=== PATIENT | male | born 1945 | race Caucasian/White ===

== ENCOUNTER 2018-07-12 10:04 | Emergency (ER) | payer OTHER ==
--- NOTE | 2018-07-12 10:21 | EDPHY ---
H & P Stated Complaint: slipped on ice--R wrist injury +deformity Time Seen by Provider: 07/12/18 10:17 HPI/ROS: HPI: This is a 72-year-old male who presents with Chief Complaint: Right wrist injury, deformity Location: Right wrist Quality: Injury Duration: Prior to arrival Signs and Symptoms: No bleeding, no radiation, no numbness, no weakness, no tingling, no incontinence, + decreased range of motion, no swelling, + pain, no fever Timing: Acute Severity: 12/13 Context: Patient is right-hand dominant, presents accompanied by his , with complaints of accidentally slipping on the ice this morning and using his right outstretched hand to stop his fall. Patient is adamant that he did not hit his head and has no other injuries except his right wrist. Patient walked back to the house and told his of his injury. Patient noted deformity to right wrist. Denies LOC/head injury/neck pain/dizziness/nausea/ vomiting/amnesia. Patient reports pain 12/13 that is worsened with flexion and extension. Does not take any blood thinners. Denies paresthesias, weakness, radiation. History of left wrist fracture last May. Modifying Factors: None Comment: ROS: A comprehensive 10 system review of systems is otherwise negative aside from elements mentioned in the history of present illness. MEDICAL/SURGICAL/SOCIAL HISTORY: Medical history: Hypothyroidism, left wrist fracture. Surgical history: Denies Social history: Retired, . CONSTITUTIONAL: Elderly extremely polite and talkative white male, at bedside, awake and alert, no obvious distress HEENT: Atraumatic and normocephalic. NECK: supple, no midline tenderness, flexion 45 degrees, extension 45 degrees, right and left lateral flexion 45 degrees. No meningismus. Cardiovascular: Normal S1/S2, regular rate, regular rhythm, without murmur rub or gallop. PULMONARY/CHEST: Symmetrical and nontender. no crepitus. Clear to auscultation bilaterally. Good air movement. No accessory muscle usage. ABDOMEN: Soft, nondistended, nontender, no ecchymosis. PELVIC: no pain with rocking; bilateral hips flexion 125 degrees, extension 30 degrees, with no pain internal rotation and no pain external rotation. BACK: No midline tenderness, no paraspinous spasm, deep tendon reflexes 2/2, no pain with straight leg raise, No foot drop. Achilles reflexes are equal bilaterally. EXTREMITIES: 2/2 pulses, strength 5/5, right WRIST: Obvious deformity noted over radius and ulna. Decreased extension, flexion and radial/ulnar deviation no scaphoid tenderness, moderate tenderness over ulnar styloid, moderate tenderness over radial styloid, able to wiggle all 5 fingers, DIP/PIP/MCP flexion/extension intact with good light touch sensation. no deformities, no clubbing, no cyanosis or edema. NEUROLOGICAL: no focal neuro deficits. GCS 15. Light touch sensation intact. SKIN: Warm and dry, 2 in laceration noted over the ulna styloid-no active bleeding. no erythema. no rash. Good capillary refill. Source: Patient, Family () Exam Limitations: No limitations - Medical/Surgical History Hx Asthma: No Hx Chronic Respiratory Disease: No Hx Diabetes: No Hx Cardiac Disease: No Hx Renal Disease: No Hx Cirrhosis: No Hx Alcoholism: No Hx HIV/AIDS: No Hx Splenectomy or Spleen Trauma: No Other PMH: hypothyroid - Social History Smoking Status: Never smoked Constitutional: Initial Vital Signs Temperature (C) 36.5 C 07/12/18 10:10 Heart Rate 75 07/12/18 10:10 Respiratory Rate 16 07/12/18 10:10 Blood Pressure 128/81 H 07/12/18 10:10 O2 Sat (%) 92 07/12/18 10:10 O2 Delivery Mode Room Air Allergies/Adverse Reactions: No Known Allergies Allergy (Unverified 07/12/18 10:09) Home Medications: Medication Instructions Recorded Cephalexin [Keflex (*)] 500 mg PO TID #21 cap 07/12/18 Levothyroxine 07/12/18 Venlafaxine 25MG (*) 07/12/18 oxyCODONE/APAP 5/325 [Percocet 1 - 2 tab PO Q4H PRN #10 tab 07/12/18 5/325 (*)] Medical Decision Making - Diagnostics Imaging Results: Imaging Impressions Wrist X-Ray 07/12/18 10:12 Impression: Distal radial and ulnar comminuted fractures. Cannot exclude an open fracture of the ulna. Procedures: Procedure: Laceration repair. Verbal consent was obtained from the patient. The 1/2 inch vertical incision over ulnar styloid right side laceration was anesthetized in the usual fashion using 6 mL 1% lidocaine with epinephrine. The wound was irrigated, draped and explored to its base with a gloved finger. There were no deep structures involved. No tendon injury was identified. The wound was repaired with #2, 4 0 Prolene in simple interrupted pattern. Bacitracin, Adaptic, clean sterile dressing applied. The procedure was performed by myself. Procedure: Dislocation reduction. The dislocation of the [ ] was reduced using [ ] technique without complications. Post reduction the patient's neurovascular exam is normal. Post reduction x-ray demonstrates reduction of the joint to the anatomic position. The procedure was performed by myself. Procedure: Splint placement. A right sugar-tong Ortho Glass splint and sling were applied. After application of the splint I returned and re-examined the patient. The splint was adequately immobilizing the joint and distal to the splint the patient's circulation and sensation was intact. ED Course/Re-evaluation: Vital signs reviewed and stable upon arrival. Mechanical fall in nature. No signs of syncope, ACS, sepsis. Patient did not hit head, no loss of consciousness, no neurological deficits to warrant head CT imaging. Bedside imaging right wrist x-ray shows displaced radial and ulna fracture. 50 mcg of fentanyl nasal given Patient has a small laceration 2 in in size over the ulnar aspect; making this an open fracture IV placed and given 2 g IV Ancef Laceration closed. Reduced at bedside, placed in sugar-tong splint, sling, orthopedic follow-up in the next 2-3 days Patient understands that he will likely require surgery. Given a prescription for Percocet and Keflex X-rays provided to patient on disc. Written and verbal wound care instructions provided No signs of neurovascular compromise/tenting of skin/compartment syndrome/ extremities and joints examined above and below area of concern and are neurovascularly intact. This patient was seen under the supervision of my secondary supervising physician. I evaluated care for this patient independently. Differential Diagnosis: Wrist injury differential includes but is not limited to radial fracture, ulnar fracture, scaphoid fracture, ligamentous injury, nerve injury. - Data Points Medications Given: Discontinued Medications Fentanyl (Sublimaze) 50 mcg NASAL EDNOW ONE Stop: 07/12/18 10:23 Last Admin: 07/12/18 10:25 Dose: 50 mcg Hydromorphone HCl (Dilaudid) 1 mg IVP EDNOW ONE Stop: 07/12/18 10:52 Last Admin: 07/12/18 10:52 Dose: 1 mg Cefazolin Sodium/Dextrose (Ancef 1 Gm (Premix)) 50 mls @ 200 mls/hr IV EDNOW ONE PRN Reason: Protocol Stop: 07/12/18 10:48 Last Admin: 07/12/18 10:47 Dose: Not Given Cefazolin Sodium/Dextrose (Ancef) 100 mls @ 200 mls/hr IV EDNOW ONE PRN Reason: Protocol Stop: 07/12/18 11:11 Last Admin: 07/12/18 10:46 Dose: 100 mls Departure - Departure Disposition: Home, Routine, Self-Care Clinical Impression: Open fracture of radius with ulna Qualifiers: Encounter type: initial encounter Open fracture type: open type I or II Laterality: right Qualified Code(s): S52.91XB - Unspecified fracture of right forearm, initial encounter for open fracture type I or II Laceration of right wrist without complication Qualifiers: Encounter type: initial encounter Qualified Code(s): S61.511A - Laceration without foreign body of right wrist, initial encounter Condition: Good Instructions: Care For Your Stitches (ED), Wrist Fracture in Adults (ED), Splint Care (ED), ORIF of a Wrist Fracture (DC) Additional Instructions: Keep the splint dry and in place until seen by Orthopedics. Wear the sling as needed for comfort. Take Tylenol 650 mg every 4 hours and/or Ibuprofen 600 mg every 8 hours with food as needed for pain. Use Percocet every 6 hours as needed for severe/break through pain. Do not use Tylenol and Percocet concomitantly. Apply ice for 30 minutes at a time; 2-3 times per day for the next 1-2 days. Take antibiotic as directed. Do not skip a dose. Follow up with Orthopedics in 2-3 days at which time they will evaluate and likely recommend surgery. Return to the ER immediately if you experience new or worsening pain, discoloration, numbness, tingling, or any other symptoms that concern you.\ Wound Care Follow-Up: Removal of sutures in [ 10-14 ] days. Suture removal is complimentary in uncomplicated cases. Infection or abnormal findings would require reevaluation by the MD. In that case, you may be billed. Follow-Up: Please follow-up as noted above. Follow-up sooner if your condition worsens or if you develop any new problems. Call as soon as possible for an appointment. Be clear when you call for an appointment that this is an Emergency Department follow-up. Contact the Emergency Department if you have trouble arranging follow-up care. Our referrals are not based on your insurance network. When time allows, contact your insurance carrier to verify the referral physician is in your plan. If not, get a referral for an in-network systems analyst. Referrals: CHRISTOPHER MORALES [Primary Care Provider] - As per Instructions Tavares Meyers MD [Medical Doctor] - As per Instructions Prescriptions: Cephalexin [Keflex (*)] 500 mg PO TID #21 cap oxyCODONE/APAP 5/325 [Percocet 5/325 (*)] 1 - 2 tab PO Q4H PRN #10 tab PRN Reason: Pain, Severe
[2018-07-12] MEDS ORDERED: fentaNYL 100 MCG/2 ML INJ NASAL ONE (10:22)
[2018-07-12] MEDS ORDERED: fentaNYL 100 MCG/2 ML INJ ONE (10:23)
[2018-07-12] MEDS ORDERED: ceFAZolin 2 GM/DEXTROSE 100 ML IV ONE (10:42)
[2018-07-12] MEDS ORDERED: CEFAZOLIN 2 GM/DEXTROSE/100 ML BAG IV ONE (10:42)
[2018-07-12] MEDS ORDERED: HYDROmorphONE/DILAUDID 1 MG/ML INJ ONE (10:50)
[2018-07-12] MEDS ORDERED: HYDROmorphONE/DILAUDID 2 MG/ML INJ IVP ONE (10:51)
[2018-07-12 12:00] VITALS: BP 126/70
== END 2018-07-12 12:00 | disposition home or self-care (01) ==
DX: S59.291A Other physeal fracture of lower end of radius, right arm, initial encounter for closed fracture (principal); S59.091A Other physeal fracture of lower end of ulna, right arm, initial encounter for closed fracture; S61.511A Laceration without foreign body of right wrist, initial encounter; E03.9 Hypothyroidism, unspecified; W00.0XXA Fall on same level due to ice and snow, initial encounter; Y92.9 Unspecified place or not applicable; Y99.9 Unspecified external cause status; Y93.9 Activity, unspecified
CPT/HCPCS: 12001; 25675; 73110; 96365; 96375; 99284; A4565; J0690; J1170; J3010

== ENCOUNTER 2018-10-19 07:21 | Inpatient (IN) | payer OTHER ==
[2018-10-19] MEDS ORDERED: ONDANSETRON 4 MG/2 ML VIAL IVP ONE (07:32)
[2018-10-19] MEDS ORDERED: LORazepam 2 MG/ML INJ IVP ONE (07:32)
[2018-10-19] MEDS ORDERED: NS 1,000 ML IV ONE (07:32)
[2018-10-19 07:42] LABS: PLATELET COUNT 233 10^3/uL (150-400)
--- NOTE | 2018-10-19 07:45 | EDPHY ---
H & P Time Seen by Provider: 10/19/18 07:32 HPI/ROS: HPI Syncope, fall, left hip pain. 73-year-old male by ambulance from home. This patient woke up at approximately 6:00 a.m. With what he describes as nausea and an urge to defecate. According to his as he was getting out of bed, he stumbled and fell. The patient reports that he was lightheaded. He landed awkwardly on his left hip. His then helped him to the bathroom and got him on the toilet. He had diarrhea. No vomiting. She called EMS. On EMS arrival he was on the toilet. His complaint was of left hip pain. He complains of no associated palpitations , chest pain, shortness of breath, loss of sensation or weakness in his extremities, sudden-onset headache. He states he feels mildly nauseous. Last meal was last night at 8:00 p.m. ROS: Constitutional: No fever, no chills. As above. Eyes: No discharge. No changes in vision. ENT: No sore throat. No nasal congestion or rhinorrhea. Respiratory: No cough. No shortness of breath. Cardiac: No chest pain, no palpitations. Gastrointestinal: No abdominal pain, no vomiting, no diarrhea. Genitourinary: No hematuria. No dysuria or increased frequency with urination. Musculoskeletal: No back pain. No neck pain. As above. Denies other extremity pain. Skin: No rashes. Neurological: No headache. No focal weakness or altered sensation. Past medical history: Hypothyroid, anorexia, anxiety. Social history: Nonsmoker. Social alcohol. He is and lives with his . His is here at the bedside. Physical Exam: General Appearance: Alert, mildly anxious but not in distress. Very thin, borderline cachectic. This patient is responding to questions appropriately and in full sentences. This patient appears well-hydrated and well-nourished. Head: Normocephalic atraumatic. Face: Facial bones are stable on palpation. Eyes: Pupils equal and round and reactive to light, no pallor or injection. No lid erythema or edema. ENT, Mouth: Mucous membranes moist. Dentition is intact. No malocclusion of the jaw. No tongue lacerations or abrasions. Pharynx is clear. The bilateral nasal canals are clear. No septal hematoma. Respiratory: There are no retractions, lungs are clear to auscultation with good air movement bilaterally. Chest wall is stable to AP and lateral palpation. Cardiovascular: Regular rate and rhythm. No murmur. Gastrointestinal: Abdomen is soft and nontender, no masses, bowel sounds normal. Neurological: Motor sensory function is intact. Cranial nerves are normal. Cerebellar function intact. Skin: Warm and dry, no rashes. No lacerations, abrasions or contusions. Musculoskeletal: Neck is supple and nontender. The trachea is midline. No midline cervical, thoracic, lumbar or sacral tenderness on palpation. No flank tenderness on palpation. Left lower extremity in hip exam: Significant for tenderness on palpation of the proximal anterior lateral aspect of the thigh. There is shortening of the left lower extremity relative to the right lower extremity. The left lower extremity is neurovascularly intact. All joints in the left lower extremity except the left hip range without significant pain or impingement. Extremities are symmetrical, full range of motion except noted. All joints in the bilateral upper and bilateral lower extremities range without pain or impingement except noted. No tenderness on palpation of the long bones in the bilateral upper and bilateral lower extremities except noted. Psychiatric: No agitation. No depression. Database: EKG: EKG time is 7:29 a.m.; EKG shows a narrow complex normal sinus rhythm with a ventricular rate of 59. QS waves noted in the anterior septal leads V1 and V2. The OR, QRS, QT intervals are within normal limits. Nonspecific T-wave abnormalities in the lateral leads. There are no ST-T wave changes indicative of ischemic or injury pattern. No evidence of right heart strain. No evidence of WPW, Brugada syndrome, hypertrophic cardiomyopathy. Interpreted by me. Imaging: Left femur and hip x-ray series: Significant for a comminuted displaced subtrochanteric femur fracture. Interpreted by me. Procedures: Emergency department course: Triage vital signs reviewed and are normal. IV was placed per EMS. The patient had been started on IV normal saline by EMS. He will receive 1 L over the next hour. The patient will be given 0.5 mg of IV hydromorphone for pain and 4 mg of IV Zofran for nausea. EKG and left hip x-ray obtained. 8:00 a.m., the patient was re-evaluated, he appears to be resting comfortably at this time. I discussed results of his x-ray and diagnosis of left hip fracture with him and his . I discussed need for operative management and admission. All of their questions were answered. Orthopedics paged. 8:05 a.m., spoke with on-call hospitalist. Case discussed in detail. Patient accepted for admission to the hospitalist service under Dr. Daniel Rod. 8:15 a.m., spoke with on-call orthopedic surgeon Dr. Huseyin Meyers. Case discussed with him in detail. He plans on taking this patient to the OR this morning for repair of his left femur fracture. The patient's remaining emergency department course under my care has been uneventful. He was given additional IV hydromorphone for pain control. On re-evaluation his left lower extremity is neurovascularly intact. His pain is currently well controlled. He was admitted to the hospitalist service/preop in stable condition. Differential Diagnosis: The differential diagnosis on this patient includes but is not limited to left hip fracture, left proximal femur fracture, dehydration, vasovagal syncope. Arrhythmia, acute coronary syndrome, CVA unlikely. This represents a partial list of diagnoses considered. These considerations are based on history, physical exam, past history, reassessment and diagnostic testing. Smoking Status: Former smoker Constitutional: Initial Vital Signs Temperature (C) 36.4 C 10/19/18 07:25 Heart Rate 63 10/19/18 07:25 Respiratory Rate 16 10/19/18 07:25 Blood Pressure 105/67 10/19/18 07:25 O2 Sat (%) 97 10/19/18 07:25 O2 Delivery Mode Room Air Allergies/Adverse Reactions: morphine Allergy (Mild, Unverified 10/19/18 08:31) Other-Enter Comments Home Medications: Medication Instructions Recorded Levothyroxine [Synthroid 75 mcg 75 mcg PO DAILY06 07/12/18 (*)] Acetaminophen [Tylenol ES 500 mg 500 mg PO Q6H PRN 10/19/18 (*)] Herbals/Supplements -Info Only 1 ea PO DAILY 10/19/18 Tamsulosin HCl [Flomax 0.4 MG (*)] 0.4 mg PO DAILY 10/19/18 Venlafaxine HCl [Venlafaxine HCl 150 mg PO DAILY 10/19/18 ER] Medical Decision Making - Diagnostics Imaging Results: Imaging Impressions Femur X-Ray 10/19/18 07:33 Impression: 1. Intact shaft distal femur. 2. Angulated and comminuted intertrochanteric fracture. - Data Points Laboratory Results: Laboratory Results 10/19/18 07:25 10/19/18 07:25 10/19/18 10/19/18 10/19/18 07:25 07:25 07:25 WBC 5.11 10^3/uL 10^3/uL (3.80-9.50) RBC 3.24 10^6/uL L 10^6/uL (4.40-6.38) Hgb 10.7 g/dL L g/dL (13.7-17.5) Hct 33.1 % L % (40.0-51.0) MCV 102.2 fL H fL (81.5-99.8) MCH 33.0 pg pg (27.9-34.1) MCHC 32.3 g/dL L g/dL (32.4-36.7) RDW 13.3 % % (11.5-15.2) Plt Count 233 10^3/uL 10^3/uL (150-400) MPV 10.3 fL fL (8.7-11.7) Neut % (Auto) 57.3 % % (39.3-74.2) Lymph % (Auto) 31.1 % % (15.0-45.0) [place] % (Auto) 9.2 % % (4.5-13.0) Eos % (Auto) 1.2 % % (0.6-7.6) Baso % (Auto) 0.8 % % (0.3-1.7) Nucleat RBC Rel Count 0.0 % % (0.0-0.2) Absolute Neuts (auto) 2.93 10^3/uL 10^3/uL (1.70-6.50) Absolute Lymphs (auto) 1.59 10^3/uL 10^3/uL (1.00-3.00) Absolute Monos (auto) 0.47 10^3/uL 10^3/uL (0.30-0.80) Absolute Eos (auto) 0.06 10^3/uL 10^3/uL (0.03-0.40) Absolute Basos (auto) 0.04 10^3/uL 10^3/uL (0.02-0.10) Absolute Nucleated RBC 0.00 10^3/uL 10^3/uL (0-0.01) Immature Gran % 0.4 % % (0.0-1.1) Immature Gran # 0.02 10^3/uL 10^3/uL (0.00-0.10) PT 13.2 SEC SEC (12.0-15.0) INR 1.04 (0.83-1.16) APTT Pending Sodium 133 mEq/L L mEq/L (135-145) Potassium 4.2 mEq/L mEq/L (3.5-5.2) Chloride 94 mEq/L L mEq/L (97-110) Carbon Dioxide 29 mEq/l mEq/l (22-31) Anion Gap 10 mEq/L mEq/L (6-14) BUN 18 mg/dL mg/dL (7-23) Creatinine 0.9 mg/dL mg/dL (0.7-1.3) Estimated GFR > 60 Glucose 120 mg/dL H mg/dL (70-100) Calcium 8.7 mg/dL mg/dL (8.5-10.4) Medications Given: Discontinued Medications Sodium Chloride (Ns) 1,000 mls @ 0 mls/hr IV EDNOW ONE; Wide Open PRN Reason: Protocol Stop: 10/19/18 07:33 Last Admin: 10/19/18 07:46 Dose: 1,000 mls Lorazepam (Ativan Injection) 0.5 mg IVP EDNOW ONE Stop: 10/19/18 07:33 Last Admin: 10/19/18 07:46 Dose: 0.5 mg Ondansetron HCl (Zofran) 4 mg IVP EDNOW ONE Stop: 10/19/18 07:33 Last Admin: 10/19/18 07:46 Dose: 4 mg Departure - Departure Disposition: [facility] Acute Clinical Impression: Syncope, Injury of left hip
[2018-10-19] MEDS ORDERED: ONDANSETRON 4 MG/2 ML VIAL IVP PRN ×2 (08:17→10:06)
[2018-10-19] MEDS ORDERED: ONDANSETRON DISINTEGRATING 4 MG TAB PO PRN (08:17)
[2018-10-19] MEDS ORDERED: HYDROmorphONE/DILAUDID 1 MG/ML INJ IVP PRN (08:17)
[2018-10-19] MEDS ORDERED: HYDROmorphONE/DILAUDID 2 MG/ML INJ IVP ONE (08:32)
[2018-10-19] MEDS ORDERED: HYDROmorphONE/DILAUDID 2 MG/ML INJ ONE (08:34)
[2018-10-19] MEDS ORDERED: BUPIVACAINE/EPI 0.5% 30 ML SDV ONE (09:23)
[2018-10-19] MEDS ORDERED: CEFAZOLIN 2 GM/DEXTROSE/100 ML BAG IV ONE (09:57)
[2018-10-19] MEDS ORDERED: PROPOFOL 200 MG/20 ML VIAL ONE (10:01)
[2018-10-19] MEDS ORDERED: fentaNYL 100 MCG/2 ML INJ ONE ×3 (10:01→13:35)
[2018-10-19] MEDS ORDERED: ROCURONIUM 50 MG/5 ML VIAL ONE ×2 (10:03→11:38)
[2018-10-19] MEDS ORDERED: NALOXONE HCL 0.4 MG/ML INJ IVP PRN (10:06)
[2018-10-19] MEDS ORDERED: oxyCODONE IR 5 MG TAB PO PRN (10:06)
--- NOTE | 2018-10-19 10:06 | PDANEPAE ---
ANE History of Present Illness Hip Fx ORIF ANE Past Medical History - Cardiovascular History Hx Hypertension: No Hx Arrhythmias: No - Pulmonary History Hx Oxygen in Use at Home: No Hx Sleep Apnea: No - Endocrine History Hx Diabetes: No ANE Review of Systems Review of Systems: ANE Patient History - Allergies Allergies/Adverse Reactions: morphine Allergy (Mild, Unverified 10/19/18 08:31) Other-Enter Comments - Home Medications Home Medications: Levothyroxine [Synthroid 75 mcg (*)] 75 mcg PO DAILY06 07/12/18 [Last Taken ] Acetaminophen [Tylenol ES 500 mg (*)] 500 mg PO Q6H PRN 10/19/18 [Last Taken 05:00] Herbals/Supplements -Info Only 1 ea PO DAILY 10/19/18 [Last Taken 10/18/18] Tamsulosin HCl [Flomax 0.4 MG (*)] 0.4 mg PO DAILY 10/19/18 [Last Taken 10/18/18 ] Venlafaxine HCl [Venlafaxine HCl ER] 150 mg PO DAILY 10/19/18 [Last Taken ] - NPO status NPO Since - Liquids (Date): 10/18/18 NPO Since - Liquids (Time): 20:00 NPO Since - Solids (Date): 10/18/18 NPO Since - Solids (Time): 20:00 - Smoking Hx Smoking Status: Former smoker ANE Labs/Vital Signs - Labs Result Diagrams: 10/19/18 07:25 10/19/18 07:25 - Vital Signs Blood Pressure: 119/82 Heart Rate: 66 Respiratory Rate: 16 O2 Sat (%): 100 Height: 175.26 cm Weight: 54.431 kg ANE Physical Exam - Airway Neck exam: FROM Mallampati Score: Class 2 Mouth exam: normal dental/mouth exam - Pulmonary Pulmonary: clear to auscultation - Cardiovascular Cardiovascular: regular rate and rhythym - ASA Status ASA Status: II ANE Anesthesia Plan Anesthesia Plan: GA w LMA
[2018-10-19] MEDS ORDERED: ceFAZolin 2 GM/DEXTROSE 100 ML IV ONE (10:08)
--- NOTE | 2018-10-19 10:08 | PDGENHP ---
History and Physical History and Physical: CC: L hip injury HPI: Slipped getting out of bed today. Fell on L hip. Immediate pain and inability to WB. Seen in ED. Admitted to hospitalist service. PSH: bl wrist orif Exam: Gen - no distress, a&ox3 LLE -shortened, ER -intact EHL/FHL -1+ distal AT pulse -SILT Imaging: L hip IT fx A/P: L hip IT fx -plan OR
--- NOTE | 2018-10-19 10:08 | PDHPUP ---
History & Physical Update H&P update statement: This history and physical update is based on an assessment of the patient which was completed after admission or registration (within 24 hours), but prior to the surgery/procedure. H&P update: H&P reviewed & patient examined, no change in patient's condition since H&P completed
[2018-10-19] MEDS ORDERED: ONDANSETRON 4 MG/2 ML VIAL ONE (12:43)
[2018-10-19] MEDS ORDERED: RANITIDINE 50 MG/2 ML VIAL ONE (12:43)
--- NOTE | 2018-10-19 13:16 | PDMN ---
Medical Necessity Medical necessity: Pt meets IP criteria as of 10/21/2018 per MD and YUDI SALAS ( Musculoskeletal Disease [facility]); est los > 2 mn for ongoing tx and management of comminuted displaced subtrochanteric femur fracture s/p syncope with a fall; requiring surgical intervention, pain control, and PT/OT.
--- NOTE | 2018-10-19 13:26 | POSTANESTH ---
Post Anesthetic Evaluation Cardiovascular Status: Normal, Stable Respiratory Status: Normal, Stable Level of Consciousness/Mental Status: Can Participate in Eval, Mildly Sleepy, Arousable Pain Control: Adequate, Prn Tx Ordered Nausea/Vomiting Control: Adequate, Prn Tx Ordered Complications Possibly Related to Anesthesia: None Noted
[2018-10-19] MEDS: fentaNYL 100 MCG/2 ML INJ IVP PRN ×2 (13:36→13:45)
[2018-10-19] MEDS ORDERED: HYDROmorphONE/DILAUDID 1 MG/ML INJ ONE (14:01)
[2018-10-19] MEDS: HYDROmorphONE/DILAUDID 1 MG/ML INJ IVP PRN ×2 (14:04→14:15)
--- NOTE | 2018-10-19 14:35 | PDGENHP ---
History and Physical - Chief Complaint L Hip pain - History of Present Illness Jean-Claude Jiménez is a 73 yo M with a PMHx of Hypothyroidism, Anorexia who presents to [facility] for L hip pain after fall. His is at bedside who has helped with hx taking. They report that patient woke up around 6 AM this morning with the urge to defecate. As we was going to bathroom, he tripped and fell on his L side with acute onset of severe sharp pain in his L hip. He was unable to bear weight on his L side without significant pain. He denies any lightheadedness, dizziness, LOC, chest pain, SOB. His got him to the toilet afterwards and he had an episode of loose stools. He denies any hematochezia, melena, hemoptysis, hematuria. History Information - Allergies/Home Medication List Allergies/Adverse Reactions: morphine Allergy (Mild, Verified 10/19/18 13:43) Other-Enter Comments Home Medications: Levothyroxine [Synthroid 75 mcg (*)] 75 mcg PO DAILY06 07/12/18 [Last Taken ] Acetaminophen [Tylenol ES 500 mg (*)] 500 mg PO Q6H PRN 10/19/18 [Last Taken 05:00] Herbals/Supplements -Info Only 1 ea PO DAILY 10/19/18 [Last Taken 10/18/18] Tamsulosin HCl [Flomax 0.4 MG (*)] 0.4 mg PO DAILY 10/19/18 [Last Taken 10/18/18 ] Venlafaxine HCl [Venlafaxine HCl ER] 150 mg PO DAILY 10/19/18 [Last Taken ] I have personally reviewed and updated: family history, medical history, social history, surgical history - Past Medical History Additional medical history: Hypothyroidism, Idiopathic neuropathy, Anorexia - Surgical History Additional surgical history: recent wrist fracture repair - Family History Positive for: non-pertinent - Social History Smoking Status: Former smoker Review of Systems Review of Systems: ROS: 10pt was reviewed & negative except for what was stated in HPI & below Physical Exam Physical Exam: Temp Pulse Resp BP Pulse Ox 36.4 C 66 14 129/85 H 100 10/19/18 13:57 10/19/18 10:05 10/19/18 14:15 10/19/18 14:15 10/19/18 14:15 O2 (L/minute) 1 Constitutional: no apparent distress, cachectic Eyes: PERRL Ears, Nose, Mouth, Throat: moist mucous membranes Cardiovascular: regular rate and rhythym Respiratory: no respiratory distress, no rales or rhonchi Gastrointestinal: soft, non-tender abdomen Genitourinary: no bladder fullness Skin: warm Musculoskeletal: pain with ROM Neurologic: AAOx3 Psychiatric: interacting appropriately Lab Data & Imaging Review 10/19/18 07:25 10/19/18 07:25 WBC 5.11 10^3/uL (3.80-9.50) 10/19/18 07:25 RBC 3.24 10^6/uL (4.40-6.38) L 10/19/18 07:25 Hgb 10.7 g/dL (13.7-17.5) L 10/19/18 07:25 Hct 33.1 % (40.0-51.0) L 10/19/18 07:25 MCV 102.2 fL (81.5-99.8) H 10/19/18 07:25 MCH 33.0 pg (27.9-34.1) 10/19/18 07:25 MCHC 32.3 g/dL (32.4-36.7) L 10/19/18 07:25 RDW 13.3 % (11.5-15.2) 10/19/18 07:25 Plt Count 233 10^3/uL (150-400) 10/19/18 07:25 MPV 10.3 fL (8.7-11.7) 10/19/18 07:25 Neut % (Auto) 57.3 % (39.3-74.2) 10/19/18 07:25 Lymph % (Auto) 31.1 % (15.0-45.0) 10/19/18 07:25 Carroll % (Auto) 9.2 % (4.5-13.0) 10/19/18 07:25 Eos % (Auto) 1.2 % (0.6-7.6) 10/19/18 07:25 Baso % (Auto) 0.8 % (0.3-1.7) 10/19/18 07:25 Nucleat RBC Rel Count 0.0 % (0.0-0.2) 10/19/18 07:25 Absolute Neuts (auto) 2.93 10^3/uL (1.70-6.50) 10/19/18 07:25 Absolute Lymphs (auto) 1.59 10^3/uL (1.00-3.00) 10/19/18 07:25 Absolute Monos (auto) 0.47 10^3/uL (0.30-0.80) 10/19/18 07:25 Absolute Eos (auto) 0.06 10^3/uL (0.03-0.40) 10/19/18 07:25 Absolute Basos (auto) 0.04 10^3/uL (0.02-0.10) 10/19/18 07:25 Absolute Nucleated RBC 0.00 10^3/uL (0-0.01) 10/19/18 07:25 Immature Gran % 0.4 % (0.0-1.1) 10/19/18 07:25 Immature Gran # 0.02 10^3/uL (0.00-0.10) 10/19/18 07:25 PT REJ 10/19/18 07:25 INR TNP 10/19/18 07:25 APTT TNP 10/19/18 07:25 Sodium 133 mEq/L (135-145) L 10/19/18 07:25 Potassium 4.2 mEq/L (3.5-5.2) 10/19/18 07:25 Chloride 94 mEq/L (97-110) L 10/19/18 07:25 Carbon Dioxide 29 mEq/l (22-31) 10/19/18 07:25 Anion Gap 10 mEq/L (6-14) 10/19/18 07:25 BUN 18 mg/dL (7-23) 10/19/18 07:25 Creatinine 0.9 mg/dL (0.7-1.3) 10/19/18 07:25 Estimated GFR > 60 10/19/18 07:25 Glucose 120 mg/dL (70-100) H 10/19/18 07:25 Calcium 8.7 mg/dL (8.5-10.4) 10/19/18 07:25 POC Troponin I 0.02 ng/mL (0.00-0.08) 10/19/18 08:53 Assessment & Plan Assessment: L Hip IT Fracture - S/p mechanical fall at home, no LOC noted, does also have a hx of idiopathic neuropathy which likely contributed - Ortho, Dr. Meyers, consulted to go to OR today, per Revised Cardiac Risk Index for Pre-Operative Risk patient is Class 1 Risk with 3.9% 30 day risk of , IA, or cardiac arrest - Pain medication PRN - PT/OT ordered - DVT Ppx with Lovenox to start tomorrow Anemia - Hgb 10.7 on admission, MCV 102.2 indicating Macrocytic - No baseline to compare to - Will order Fe Panel and B12/Folate to initiate w/u - Denies any s/s of bleeding, will inquire about last screening colonoscopy - Continue to monitor, transfuse for H/H <7/20 Hyponatremia - Na 133 on admission - S/p 1L NS in the ED - Will repeat in the AM Diarrhea - Patient awoke with urgency and episode of diarrhea - Denies any ongoing symptoms after initial episode this morning - Will hold off on GI PCR/Anti-diarrheals for now, if recurs will proceed Hypothyroidism - Continue home Levothyroxine Anorexia - Continue home Venlafaxine BPH - Continue home Flomax FEN: IVF PRN, Regular DVT PPx: Lovenox to start tomorrow COde: FULL Dispo: Admit to Medicine
[2018-10-19] MEDS: IBUPROFEN 200 MG TAB PO PRN ×2 (15:37→22:15)
[2018-10-19] MEDS: oxyCODONE IR 5 MG TAB PO PRN (15:37)
--- NOTE | 2018-10-19 15:41 | ASMTCMCOM ---
CM Note CM Note Notes: Chart Review for Discharge Planning: Patient is a 73 year old male who presented to [facility] ED via ambulance after a fall, also experiencing diarrhea. Medical history includes hypothyroidism, idiopathic neuropathy, anorexia. Imaging revealed comminuted displaced subtrochanteric femur fracture, patient underwent surgery for repair. PT/OT ordered, pending recommendations. CM to follow. D/C Plan: TBD Date Signed: 10/19/2018 03:40 PM Electronically Signed By:Pat Hall
--- NOTE | 2018-10-19 17:18 | GCON ---
[f rep st] CONSULTATION DATE OF CONSULTATION: 10/19/2018 This is a consultation for Dr. Daniel Rod and Dr. Sarita Littlejohn. CHIEF COMPLAINT: Left hip injury. HISTORY OF PRESENT ILLNESS: The patient is a 73-year-old male who has a past history of bilateral wr ist fractures from falls. He woke up at around 6 a.m. this morning due to diarrhea and nausea. He w as getting out of bed to go to the restroom, stumbled and fell onto his left hip. He had immediate p ain and inability to bear weight. EMS was called. He was then brought to the ER. He was evaluated by the ER staff. Plan was admission to the hospitalist service. I was called for evaluation of the hip fracture. On discussion with his , the patient has become quite thin in the past few years. He has worked with a physical therapist for balance, although he has had a few falls in the past few years. REVIEW OF SYSTEMS: A 10-point review of systems is negative, except as noted above. PAST MEDICAL HISTORY: Hypothyroid, anorexia, anxiety. SOCIAL HISTORY: Nonsmoker. He is , lives with his . He is retired. 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 PAST SURGICAL HISTORY: ORIF of bilateral wrists. PHYSICAL EXAMINATION: GENERAL: He is alert and oriented. He is in no distress. He is very thin. MUSCULOSKELETAL: His left leg is shortened and externally rotated. He has intact EHL and FHL. His sensation is intact to light touch throughout the foot. He has 1+ distal anterior tib pulse. IMAGING: I reviewed the x-rays of the left hip. The images show an unstable type pattern intertroch anteric hip fracture. There appears to be a transverse intertrochanteric component and a basicervica l-type component. ASSESSMENT AND PLAN: Unstable left hip intertrochanteric fracture. Surgical fixation is indicated, to be done in a timely manner. The patient is n.p.o. since last night. I spoke to the hospitalist veronica parsons, Dr. Daniel Rod, and admitted the patient. He is cleared for surgery and will take him to [facility] this morning. I did discuss with his that after 2 wrist fractures and now a hip fracture, it is important that the patient be evaluated for osteoporosis by his primary care physician. /[id number]/MODL
[2018-10-19] MEDS: ceFAZolin 2 GM/DEXTROSE 100 ML IV SCH (17:56)
[2018-10-19] MEDS: NS 1,000 ML IV SCH (18:18)
--- NOTE | 2018-10-19 18:49 | GOP ---
[f rep st] OPERATIVE REPORT DATE OF OPERATION: 10/19/2018 SURGEON: Tavares Meyers MD ANESTHESIA: General. PREOPERATIVE DIAGNOSIS: Unstable left hip intertrochanteric fracture. POSTOPERATIVE DIAGNOSIS: Unstable left hip intertrochanteric fracture. PROCEDURE PERFORMED: Left hip intertrochanteric fracture open reduction internal fixation with intramedullary device. FINDINGS: ESTIMATED BLOOD LOSS: 200 cc. INDICATIONS: The patient is a 73-year-old male who slipped and fell getting out of bed to go to the bathroom early this morning. He was seen and evaluated in the ER, sustained this unstable left hip injury. I was consulted. This is an unstable type hip fracture and screw fixation is indicated. I discussed risks and benefits with the patient and his . Risks include pain, bleeding , infection, damage to surrounding structures, delayed union, nonunion, limp, weakness, muscle reduction, need for further surgery. They understood these risks and wished to proceed. DESCRIPTION OF PROCEDURE: The patient was seen in preoperative holding area, was given opportunity to ask any questions. All his questions were answered. Consent was signed. Surgical site was marked. He was transferred to operative suite. General anesthesia was induced on the rpenuelas. Time-out was called including surgical and anesthesia teams confirming the surgical site and procedure performed. 2 g of Ancef were given prior to incision. After induction of anesthesia, he was very carefully placed on the fracture table as right well leg was placed in a well leg monet abducted out of the way. The operative leg was placed in a stirrup and boot and secured. Great care was taken to ensure that all bony prominences were padded. His well leg was well padded. His arms were placed across the chest and padded. The left foot placed in the boot was padded as well. I performed initially a closed reduction with traction, internal rotation and adduction and I was able to achieve an anatomic appearing reduction. He was then prepped and draped in usual sterile fashion. I made a standard incision proximal to the greater troch for placement of the guidewire, placed a guidewire, checked the AP and lateral views and I was happy with that position. I then drilled with the opening reamer. Upon drilling with the opening reamer, I noticed as soon as I entered the canal, the fracture displaced easily. He appears on this view to have a transverse troch type component and also a basicervical type component and the medial calcar kept displacing medially and going into valgus. I scrubbed out to try to correct the reduction by internally rotating mortise and appeared to correct it. I proceeded to ream because this is unstable pattern and I decided to put a long nail in. I reamed up to 13 for a 12 nail as had a very capacious canal. Upon placing the nail, his fracture again completely displaced. This appeared to be a very unstable fracture. I decided to 1st try to remedy this with a guidewire placed into the neck to hold the reduction. This did not hold it very well. I decided to place the nail at the appropriate depth, then try to achieve the reduction. I first tried to achieve a reduction by a medially directed force with a mallet. This did not reduce it completely. I then made an incision for the blade and through this incision, I carefully, using a Calhoun, made some space over the anterior femur directly onto the bone and then I took a bone hook, staying again directly on bone, and went over to the side of the calcar and then pulled it inward over the bone hook and with this maneuver, I was able to achieve an anatomic reduction. To maintain this reduction, I placed 2 more guidewires through the jig to hold it in place. I then placed the guidewire for the blade. When I was happy with the position of the guidewire for the blade and the position of the nail, I then drilled for the blade, of which I chose 110, then I impacted the blade. At this point, I then removed the provisional fixation wires and the hook and then took an x-ray and then was finally able to achieve a stable reduction. I checked the lateral and I was very happy with the reduction on the lateral. I then turned my attention to placing the distal interlock and then placed a distal interlock in the standard freehand fashion using the perfect chenega technique. At this point then, I took final x-rays. I was very happy with the anatomic reduction. I irrigated all incisions copiously with sterile saline. I closed the IT band with 0 Vicryl, then the subcutaneous layer with 2-0 Monocryl and then lucius for the skin. Sterile dressing was applied. He tolerated procedure well and was taken to PACU in stable condition. IMPLANTS USED: Synthes TFNA hip fracture nailing system, long nail, 410 mm, with 110 mm blade and single distal interlock screw. POSTOPERATIVE CONDITION: Stable. POSTOPERATIVE PLAN: The patient will be admitted to the hospitalist service. He will be followed by my service while he is admitted. I will see the patient in 2 weeks. We will make him initially toe-touch weightbearing as this is an unstable fracture. /[id number]/MODL MTDD
[2018-10-20] MEDS: ceFAZolin 2 GM/DEXTROSE 100 ML IV SCH (01:21)
[2018-10-20] MEDS: NS 1,000 ML IV SCH (02:40)
[2018-10-20] MEDS: IBUPROFEN 200 MG TAB PO PRN ×3 (04:23→20:20)
[2018-10-20 04:43] LABS: PLATELET COUNT 151 10^3/uL (150-400)
[2018-10-20] MEDS: LEVOTHYROXINE 75 MCG TAB PO SCH (05:47)
[2018-10-20] MEDS: TAMSULOSIN HCL 0.4 MG CAP PO SCH (08:15)
[2018-10-20] MEDS: ENOXAPARIN 40 MG/0.4 ML SYR SC SCH (08:15)
[2018-10-20] MEDS: VENLAFAXINE XR 150 MG CAP PO SCH (08:15)
[2018-10-20] MEDS: oxyCODONE IR 5 MG TAB PO PRN ×2 (08:16→12:59)
--- NOTE | 2018-10-20 08:29 | SOAPPROG ---
SOAP Progress Note Assessment/Plan: Assessment: Left intertrochanteric femur fracture - s/p left hip TFN - POD 1, performed by Dr. Meyers Anemia - continue to monitor, expected initially post-op, asymptomatic Plan: Continue d/c planning - will have support of his Continue PT/OT - TTWB Continue oral pain medication - motrin, tylenol, oxycodone Continue VTE ppx - Lovenox, SCDs Subjective: Patient states he is doing ok this morning, his left hip is painful but not severe enough for him to need/want oxycodone. He is wondering how long he will be in the hospital and how long TTWBing. I informed the patient and his that Dr. Meyers will be in later today and he will discuss those things with him. Patient denies SOB, CP, fever, chills, nausea. Objective: Vital Signs Temp Pulse Resp BP Pulse Ox 36.9 C 89 16 130/83 H 90 L 10/20/18 08:00 10/20/18 08:00 10/20/18 08:00 10/20/18 08:00 10/20/18 08:00 Laboratory Results 10/20/18 04:19 10/20/18 04:19 10/19/18 10/20/18 10/21/18 05:59 05:59 05:59 Intake Total 2250 1600 Output Total 1250 Balance 1000 1600 PT REJ 10/19/18 07:25 INR TNP 10/19/18 07:25 Patient resting in bed, no acute distress. SCDs are in place bilaterally. His is present in the room. LLE: Surgical wound dressings along the lateral hip and thigh are clean, dry and intact. Lower leg compartments are soft and nontender. He can actively DF and PF his feet and great toes. Grossly NVI distally. ICD10 Worksheet Patient Problems: Problems Problem Status Onset Injury of left hip Acute Syncope Acute
[2018-10-20] MEDS: ACETAMINOPHEN 325 MG TAB PO PRN ×2 (08:31→18:02)
[2018-10-20] MEDS ORDERED: ZOLPIDEM TARTRATE 5 MG TAB PO PRN (12:01)
--- NOTE | 2018-10-20 15:07 | ASMTCMCOM ---
CM Note CM Note Notes: CM spoke with pt and pt's Tyra extensively in the room. CM educated pt on difference between inpatient rehab and short term rehab, and provided pt with written materials on both and list of facilities for each. PT and OT are recommending Inpt Rehab however pt is concerned about distance of travel for . Pt also has an eating disorder - anorexia - and is a substantial support in helping him maintain his caloric intake and manage the anorexia. Pt stated it was more difficult for him to eat in a group of people and on someone else's schedule, as he is very particular about eating many frequent meals at particular times. CM should help to communicate that to receiving facilities closer to discharge. Pt and requested referral sent to [facility], as that is the closest inpt rehab hospital and also stated they would research others. They may still opt for SNF, however this is the plan for now. CM to follow. D/C Plan: Inpt rehab pending acceptance and family choice Date Signed: 10/20/2018 03:07 PM Electronically Signed By:Narcisa Soto. PHOEBE
--- NOTE | 2018-10-20 15:07 | HOSPPROG ---
Hospitalist Progress Note Assessment/Plan: L Hip IT Fracture - S/p mechanical fall at home, no LOC noted, does also have a hx of idiopathic neuropathy which likely contributed - S/p L Hip IT fracture open reduction internal fixation with intramedullary device, POD#1 - Pain medication PRN - PT/OT, IP rehab consult placed this AM - DVT Ppx with Lovenox to start today Anemia - Hgb 10.7 on admission, MCV 102.2 indicating Macrocytic - No baseline to compare to - Denies any s/s of bleeding - Hgb decreased to 7.0 this AM, repeat 7.7 at noon - Will hold off on blood transfusions for now - Continue to monitor, transfuse for H/H <7/20 Hyponatremia - Na 133 on admission - S/p 1L NS in the ED - Continue to monitor Diarrhea - Patient awoke with urgency and episode of diarrhea - Denies any ongoing symptoms after initial episode this morning - Will hold off on GI PCR/Anti-diarrheals for now, if recurs will proceed Hypothyroidism - Continue home Levothyroxine Anorexia - Continue home Venlafaxine BPH - Continue home Flomax FEN: IVF PRN, Regular DVT PPx: Lovenox COde: FULL Dispo: Pending clinical course, likely d/c to IP rehab in next day or two if anemia is stable and not require blood transfusions Objective: Vital Signs Temp Pulse Resp BP Pulse Ox 36.9 C 83 16 124/64 H 93 10/20/18 11:08 10/20/18 11:08 10/20/18 11:08 10/20/18 11:08 10/20/18 11:08 Laboratory Results 10/20/18 11:45 10/20/18 04:19 10/19/18 10/20/18 10/21/18 05:59 05:59 05:59 Intake Total 2250 1600 Output Total 1250 Balance 1000 1600 PT REJ 10/19/18 07:25 INR TNP 10/19/18 07:25 ICD10 Worksheet Patient Problems: Problems Problem Status Onset Injury of left hip Acute Syncope Acute
--- NOTE | 2018-10-20 17:50 | SOAPPROG ---
SOAP Progress Note Assessment/Plan: Assessment: POD#1 s/p L hip TFN -doing well today. Repeat Hgb 7.7 - pt defers transfusion for now Plan: -TTWB LLE -PT/OT -DVT prophy -appreciate care of hospitalist service -I had a discussion with his regarding rehab facility. They prefer to go home. She thinks they can make accommodations on the first floor of the home. Subjective: Pt seen this evening with is . He is doing well. Anxious to start walking more. No pain in the hip at rest Objective: Vital Signs Temp Pulse Resp BP Pulse Ox 36.8 C 78 15 131/80 H 100 10/20/18 15:38 10/20/18 15:38 10/20/18 15:38 10/20/18 15:38 10/20/18 15:38 Laboratory Results 10/20/18 11:45 10/20/18 04:19 10/19/18 10/20/18 10/21/18 05:59 05:59 05:59 Intake Total 2250 1600 Output Total 1250 Balance 1000 1600 PT REJ 10/19/18 07:25 INR TNP 10/19/18 07:25 LLE -dressing c/d/i with no breakthrough B/L LE -leg lengths equal -5/5 DF/PF -sensation intact - Time Spent With Patient Time Spent With Patient: 20 min ICD10 Worksheet Patient Problems: Problems Problem Status Onset Injury of left hip Acute Syncope Acute
[2018-10-20] MEDS: MELATONIN 3 MG TAB PO SCH (20:20)
[2018-10-21 04:49] LABS: PLATELET COUNT 147 10^3/uL (150-400)
[2018-10-21] MEDS: LEVOTHYROXINE 75 MCG TAB PO SCH (05:13)
--- NOTE | 2018-10-21 08:31 | SOAPPROG ---
<Geeta Jimenez D - Last Filed: 10/21/18 08:28> SOAP Progress Note Assessment/Plan: Assessment: Left intertrochanteric femur fracture - s/p left hip TFN - POD 2, performed by Dr. Meyers Anemia - hemoglobin 6.3, will transfuse 2 units PRBC History of anorexia Burning and blood after urinating - order UA Plan: Continue d/c planning - will have support of his ; patient wants to see how PT goes and determine if he should go to rehab or home with home health/PT Continue PT/OT - TTWB on LLE Continue oral pain medication - motrin, tylenol, oxycodone Continue VTE ppx - Lovenox, SCDs Subjective: Patient states he is feeling better this morning in terms of left hip pain. He was able to have a better night sleep. He has noticed some burning with urination and also blood after urinating. His hemoglobin decreased to 6.3. I discussed this with the patient and his and they are agreeable to blood transfusion. They would also like a urine test. He denies SOB, CP, fever, chills , nausea, numbness, tingling. Objective: Vital Signs Temp Pulse Resp BP Pulse Ox 37.0 C 85 16 111/70 93 10/21/18 03:35 10/21/18 03:35 10/21/18 03:35 10/21/18 03:35 10/21/18 03:35 Laboratory Results 10/21/18 04:22 10/21/18 04:22 10/20/18 10/21/18 10/22/18 05:59 05:59 05:59 Intake Total 2250 2300 Output Total 1250 1475 Balance 1000 825 PT REJ 10/19/18 07:25 INR TNP 10/19/18 07:25 Patient resting in bed, no acute distress. His is present in the room. LLE : Skin intact. Surgical wound dressings are clean, dry and intact. Lower leg compartments soft and nontender. He can actively DF and PF his feet and great toes. Grossly NVI distally. ICD10 Worksheet Patient Problems: Problems Problem Status Onset Injury of left hip Acute Syncope Acute <Tavares Meyers K - Last Filed: 10/21/18 18:44> SOAP Progress Note Assessment/Plan: Assessment: Plan: Objective: Vital Signs Temp Pulse Resp BP Pulse Ox 36.7 C 79 14 139/86 H 96 10/21/18 17:17 10/21/18 17:17 10/21/18 17:17 10/21/18 17:17 10/21/18 17:17 Laboratory Results 10/21/18 04:22 10/21/18 04:22 10/20/18 10/21/18 10/22/18 05:59 05:59 05:59 Intake Total 2250 2300 1400 Output Total 1250 1475 650 Balance 1000 825 750 PT REJ 10/19/18 07:25 INR TNP 10/19/18 07:25
[2018-10-21] MEDS: VENLAFAXINE XR 150 MG CAP PO SCH (09:28)
[2018-10-21] MEDS: TAMSULOSIN HCL 0.4 MG CAP PO SCH (09:28)
[2018-10-21] MEDS: ENOXAPARIN 40 MG/0.4 ML SYR SC SCH (09:29)
[2018-10-21] MEDS: ACETAMINOPHEN 325 MG TAB PO PRN ×2 (11:45→20:36)
--- NOTE | 2018-10-21 14:55 | ASMTCMCOM ---
CM Note CM Note Notes: CM spoke with Pt and with pt in the room. Pt feels greatly improved and he and are hoping for HHC, which was supported by PT daniel today. [facility] is able to accept and pt is agreeable. Likely to dc in several more days as Hgb was low today. Pt's PCP is outside of [facility] and will not need a follow up appointment. CM to follow. D/C Plan: [facility] PT/OT Date Signed: 10/21/2018 02:54 PM Electronically Signed By:Narcisa Elias RN
--- NOTE | 2018-10-21 15:57 | HOSPPROG ---
Hospitalist Progress Note Assessment/Plan: L Hip IT Fracture - S/p mechanical fall at home, no LOC noted, does also have a hx of idiopathic neuropathy which likely contributed - S/p L Hip IT fracture open reduction internal fixation with intramedullary device, POD#1 - Pain medication PRN - PT/OT, IP rehab consult placed however pt leaning towards home PT Anemia - Hgb 10.7 on admission, MCV 102.2 indicating Macrocytic - No baseline to compare to - Denies any s/s of bleeding - Hgb decreased to 6.3 this AM, 7.7 yesterday afternoon - Giving 1 unit PRBC this AM - Continue to monitor, transfuse for H/H <7/20 - Will hold Lovenox for now Hyponatremia - Na 133 on admission, 132 this AM - S/p 1L NS in the ED - Continue to monitor Diarrhea - Patient awoke with urgency and episode of diarrhea - Denies any ongoing symptoms after initial episode this morning - Holding off on GI PCR/Anti-diarrheals for now, if recurs will proceed Hypothyroidism - Continue home Levothyroxine Anorexia - Continue home Venlafaxine BPH - Continue home Flomax Hematuria - Patient reporting burning with urination - UA with blood and RBC - Holding Lovenox as above - Will likely require urology evaluation as outpatient unless gross hematuria FEN: IVF PRN, Regular DVT PPx: Lovenox COde: FULL Dispo: Pending clinical course, likely d/c in next day or two if anemia is stable and not require blood transfusions Subjective: Pt reports improving pain this AM Objective: Vital Signs Temp Pulse Resp BP Pulse Ox 36.8 C 76 14 140/77 H 95 10/21/18 11:23 10/21/18 11:23 10/21/18 11:23 10/21/18 11:23 10/21/18 11:23 Laboratory Results 10/21/18 04:22 10/21/18 04:22 10/20/18 10/21/18 10/22/18 05:59 05:59 05:59 Intake Total 2250 2300 Output Total 1250 1475 Balance 1000 825 PT REJ 10/19/18 07:25 INR TNP 10/19/18 07:25 - Physical Exam Constitutional: no apparent distress, cachectic Eyes: PERRL Ears, Nose, Mouth, Throat: moist mucous membranes Cardiovascular: regular rate and rhythym Respiratory: no respiratory distress Gastrointestinal: soft, non-tender abdomen Genitourinary: No wright in urethra Musculoskeletal: pain with ROM Neurologic: AAOx3 Psychiatric: interacting appropriately ICD10 Worksheet Patient Problems: Problems Problem Status Onset Injury of left hip Acute Syncope Acute
--- NOTE | 2018-10-21 16:02 | CPEKG ---
Test Reason : OPEN Blood Pressure : / mmHG Vent. Rate : 059 BPM Atrial Rate : 060 BPM P-R Int : 197 ms QRS Dur : 099 ms QT Int : 450 ms P-R-T Axes : 070 070 087 degrees QTc Int : 446 ms Sinus rhythm Anteroseptal infarct, old Nonspecific T abnormalities, lateral leads Confirmed by Sarita Littlejohn ([id number]) on 10/21/2018 4:01:57 PM Referred By: PHYSICIAN ED Confirmed By:Sarita Littlejohn
[2018-10-21] MEDS: MELATONIN 3 MG TAB PO SCH (20:36)
[2018-10-22] MEDS: ACETAMINOPHEN 325 MG TAB PO PRN ×2 (04:29→21:54)
[2018-10-22] MEDS: LEVOTHYROXINE 75 MCG TAB PO SCH (04:29)
--- NOTE | 2018-10-22 07:48 | SOAPPROG ---
SOAP Progress Note Assessment/Plan: Assessment: Left intertrochanteric femur fracture - s/p left hip TFN - POD 3, performed by Dr. Meyers Anemia improving - received 2 units PRBC yesterday, most recent H&H 10.2.7 History of anorexia Hematuria - blood and RBC seen on UA, hospitalist recommending he follow up with urology Plan: Continue d/c planning - will have support of his ; possible d/c today or tomorrow, hospital medicine wants to make sure H&H is stable and does not require transfusions; patient is wanting to go home rather than rehab Continue oral pain medication - motrin, tylenol, oxycodone Continue VTE ppx - Lovenox (was held yesterday due to hematuria and anemia), SCDs Subjective: Patient states the left hip is feeling pretty good. He has been able to put a small amount of weight on the left lower extremity while using a walker. His main complaints today are constipation and feeling a bit depressed. He is still wanting to go home with home health/PT rather than go to a rehab. He denies SOB , CP, fever, chills, nausea, numbness, tingling. Objective: Vital Signs Temp Pulse Resp BP Pulse Ox 36.6 C 69 16 143/78 H 93 10/22/18 07:21 10/22/18 07:21 10/22/18 07:21 10/22/18 07:21 10/22/18 07:21 Laboratory Results 10/22/18 04:22 10/21/18 04:22 10/21/18 10/22/18 10/23/18 05:59 05:59 05:59 Intake Total 2300 1900 Output Total 1475 3300 550 Balance 825 -1400 -550 PT REJ 10/19/18 07:25 INR TNP 10/19/18 07:25 Patient resting in bed, no acute distress. His is present in the room. LLE : Surgical wound dressings along the lateral hip and thigh are clean, dry and intact. Visible skin is intact, no erythema, no purulent drainage. Lower leg compartments are soft and nontender. He can actively DF and PF his feet and great toes against resistance. Grossly NVI distally. ICD10 Worksheet Patient Problems: Problems Problem Status Onset Injury of left hip Acute Syncope Acute
[2018-10-22] MEDS: VENLAFAXINE XR 150 MG CAP PO SCH (07:56)
[2018-10-22] MEDS: TAMSULOSIN HCL 0.4 MG CAP PO SCH (07:56)
[2018-10-22] MEDS ORDERED: BISACODYL 10 MG SUPP PR PRN (10:04)
[2018-10-22] MEDS ORDERED: MAGNESIUM HYDROXIDE 30 ML UDCUP PO PRN (10:04)
[2018-10-22] MEDS ORDERED: POLYETHYLENE GLYCOL 3350 17 GM PKT PO PRN (10:04)
[2018-10-22] MEDS ORDERED: LACTULOSE 20 GM/30 ML UDCUP PO PRN (10:04)
[2018-10-22] MEDS: IBUPROFEN 200 MG TAB PO PRN (10:23)
--- NOTE | 2018-10-22 14:24 | HOSPPROG ---
Hospitalist Progress Note Assessment/Plan: 73 yo M with PMH Of anorexia nervosa presenting with left hip fracture following syncopal event at home. # L Hip IT Fracture--per patient and this occurred 2/2 syncope at home, now s/p ORIF and doing well, continue PT/OT # syncope: preceding his fall and leading to his injury as above, patient describes immediately prior to syncope was having diarrhea and was diaphoretic making vasovagal syncope very likely. Had recurrent episode now in the hospital. Echo ordered and pending, cardiology consulted, will monitor on tele, obtain serial trops. Unfortunately on admission was thought to be mechanical fall, so he was not on monitor during his IP episode. # anemia: acute on chronic with post op drop larger than expected, has been transfused and now stable, no e/o ongoing bleeding but expect that the drop was due to acute blood loss in post op setting. If drops further will need further w /u # hematuria: has been present since surgery, patient also reporting burning with urination, UA not c/w infection, recommending OP urology evaluation # anorexia nervosa: patient states this has been essentially a life long issue but his weight has been stable for quite some time now and he is no longer restricting significantly, BMI of 17, will ask for dietary consult. Continued on venlafaxine. # malnutrition: as above # hypothyroid: continued on levothyroxine and will check TSH # BPH: flomax # hyponatremia: has been stable and mildly low # dispo: IP status, patient is ambulating reasonably well and hoping to dc home with home health, given recurrent syncope today not ready for dc FC Patient new to my care. Old records reviewed and summarized as above. Care plan reviewed with CM, patients present at bedside. Subjective: no acute overnight events, patient has been walking a bit-able to go up several stairs, pain controlled on ibuprofen and tylenol, did have a syncopal/near syncopal episode in the hospital Objective: Vital Signs Temp Pulse Resp BP Pulse Ox 36.6 C 69 16 119/74 93 10/22/18 07:21 10/22/18 07:21 10/22/18 07:21 10/22/18 13:02 10/22/18 07:21 Laboratory Results 10/22/18 04:22 10/21/18 04:22 10/21/18 10/22/1819 05:59 05:59 05:59 Intake Total 2300 1900 Output Total 1475 3300 750 Balance 825 -1400 -750 PT REJ 10/19/18 07:25 INR TNP 10/19/18 07:25 awake alert cachectic anicteric mmm rrr no mrg cta b soft nt nd no cce warm dry well perfused oriented appropriate - Time Spent With Patient Time Spent with Patient: greater than 35 minutes Time Spent with Patient: Greater than 35 minutes spent on this patients care, greater than 50% of time spent counseling, educating, and coordinating care regarding the above mentioned plan. ICD10 Worksheet Patient Problems: Problems Problem Status Onset Injury of left hip Acute Syncope Acute
--- NOTE | 2018-10-22 17:04 | ECHO ---
[email or web address] [place] [id number] Main: [phone] Echocardiography Examination Transthoracic Name: CIPRIANO GANNON MR#: [id number] Study Date: 10/22/2018 Study Time: 02:01 PM Date of : 1945 Age: 73 year(s) Height: 175.3 cm (69 in.) Weight: 54.43 kg (120 lb.) BSA: 1.66 m2 Gender: Male Examination: Echo Contrast: Image Quality: Technically Difficult Rhythm: Heart Rate: BP: 119 mmHg/74 mmHg Indication: Syncope/left femur fracture Procedure Staff Referring Physician: Driving Instructor: Socorro Barkley RDCS Reading Physician: Emiliano Caldwell MD Requesting Provider: Ordering Physician: Dilip Parsons Indication: Syncope/left femur fracture Measurements Chambers AV/MV Label Value Normal Value Label Value Normal Value LVDd, 2D 4.6 cm (4.2cm - 5.9cm) AV PGmean 2 mmHg LADs, 2D 3.3 cm (3cm - 4cm) AV Vmax 0.95 m/s MV E Vmax 0.52 m/s MV A Vmax 0.56 m/s MV E/A 0.93 MV E/E' lateral 6.5 MV E/E' septal 7.7 (0.45 - 1.25) MV E' septal 0.07 m/s MV E' lateral 0.08 m/s MV E/E' mean 6.93 MV E' mean 0.08 m/s TV/PV Label Value Normal Value RA Pressure 5 mmHg RVSP 30 mmHg TR Pmax 25 mmHg TR Vmax 2.48 m/s Patient: CIPRIANO GANNON Study Date: 10/22/2018 Page 1 of 2 02:01 PM Conclusions 1. The echocardiogram was performed in the setting of a L femur fracture. This resulted in limited views. 2. The left ventricle is normal in size and function. Can not exclude a small segmental WMA. 3. The mitral valve leaflets are redundant. There is borderline prolapse of the posterior leaflet. There is trivial mitral regurgitation. 4. The aortic valve is not well seen. There is no aortic stenosis or insufficiency by doppler 5. The pulmonary artery pressure estimate is with in normal limits 6. There is a trivial pericardial effusion. Findings Eustachian valve visualized in RA.. Left Ventricle: Left ventricle is normal in size. Normal global systolic left ventricular function. EF range is estimated at 65 % - 70 %. There are no regional wall motion abnormalities. Right Ventricle: Normal size right ventricle. Left Atrium: The left atrium is normal in size. Right Atrium: The right atrium is normal in size. Mitral Valve: Borderline posterior mitral leaflet prolapse.. Trivial mitral regurgitation. Aortic Valve: AV opens well.. No aortic valve regurgitation. Tricuspid Valve: Tricuspid valve leaflets are structurally normal. Mild tricuspid regurgitation. Right Ventricular systolic pressure is measured at 30 mmHg. Pulmonary artery pressure normal. Pulmonic Valve: Pulmonic valve not well visualized. Pericardium: Trivial pericardial effusion. Exam Details Procedure Ordered: Echo Procedure Status: Routine study Image Quality: Technically Difficult Facility Location: Cardiac Echo 1 (No Signature Object) Patient: CIPRIANO GANNON Study Date: 10/22/2018 Page 2 of 2 02:01 PM [id number]
[2018-10-22] MEDS: SENNOSIDES/DOCUSATE SODIUM TAB PO SCH (20:53)
[2018-10-22] MEDS: MELATONIN 3 MG TAB PO SCH (20:53)
[2018-10-23] MEDS: LEVOTHYROXINE 75 MCG TAB PO SCH (04:37)
[2018-10-23] MEDS: VENLAFAXINE XR 150 MG CAP PO SCH (08:23)
[2018-10-23] MEDS: IBUPROFEN 200 MG TAB PO PRN (08:23)
[2018-10-23] MEDS: SENNOSIDES/DOCUSATE SODIUM TAB PO SCH (08:23)
[2018-10-23] MEDS: TAMSULOSIN HCL 0.4 MG CAP PO SCH (08:24)
[2018-10-23 11:26] VITALS: BP 134/76
--- NOTE | 2018-10-23 12:53 | PDDCSUM ---
Discharge Summary Discharge Summary: Dates of service 10/19-10/23/18 Consultations:orthopedics Procedures performed: ORIF left hip Hospital course by problem: 73 yo M with PMH Of anorexia nervosa presenting with left hip fracture following syncopal event at home. # L Hip IT Fracture--per patient and this occurred 2/2 syncope at home, now s/p ORIF and doing well, continue PT/OT # syncope: preceding his fall and leading to his injury as above, patient describes immediately prior to syncope was having diarrhea and was diaphoretic making vasovagal syncope very likely. Had recurrent episode now in the hospital. Echo with normal EF, no significant valvular issues. Cardiology consulted but patient requesting dc prior to consult completion and would like to f/u with them as OP. # anemia: acute on chronic with post op drop larger than expected, has been transfused and now stable, no e/o ongoing bleeding but expect that the drop was due to acute blood loss in post op setting. # hematuria: has been present since surgery, patient also reporting burning with urination, UA not c/w infection, recommending OP urology evaluation # anorexia nervosa: patient states this has been essentially a life long issue but his weight has been stable for quite some time now and he is no longer restricting significantly, BMI of 17, will ask for dietary consult. Continued on venlafaxine. # malnutrition: as above # hypothyroid: continued on levothyroxine and will check TSH # BPH: flomax # hyponatremia: has been stable and mildly low # dispo: dc home with home health Items for f/u: --f/u fracture and post op eval --f/u with cardiology for further evaluation of syncope --repeat CBC > 35 min spent in dc more than half in counseling patient and coordination of care
== END 2018-10-23 13:12 | disposition home or self-care (01) | DRG 481 ==
LOC: EDUNIT# → OBSVTOIN 08:19 → F3N 14:33
PROVIDERS: ADMIT Internal Medicine; ATTEND Internal Medicine
PROC: 0QS706Z Reposition Left Upper Femur with Intramedullary Internal Fixation Device, Open Approach (ICD-10-PCS; principal; 2018-10-19 09:30)
PROC: 30233N1 Transfusion of Nonautologous Red Blood Cells into Peripheral Vein, Percutaneous Approach (ICD-10-PCS; principal; 2018-10-19 09:30)
DX: S72.142A Displaced intertrochanteric fracture of left femur, initial encounter for closed fracture (principal); W06.XXXA Fall from bed, initial encounter; Y92.013 Bedroom of single-family (private) house as the place of occurrence of the external cause; D62 Acute posthemorrhagic anemia; R55 Syncope and collapse; E03.9 Hypothyroidism, unspecified; R31.9 Hematuria, unspecified; R30.0 Dysuria; E87.1 Hypo-osmolality and hyponatremia; R19.7 Diarrhea, unspecified; F50.00 Anorexia nervosa, unspecified; E46 Unspecified protein-calorie malnutrition; N40.0 Benign prostatic hyperplasia without lower urinary tract symptoms; G60.8 Other hereditary and idiopathic neuropathies; Z68.1 Body mass index [BMI] 19.9 or less, adult; Z87.891 Personal history of nicotine dependence
CPT/HCPCS: 84481-90; 84484-ER; 96374; 97110-GP; 97116-GP; 97161-GP; 97165-GO; 97530-GP; 97535-GO; C1713; J0690; J1170; J1650; J2060; J2405; J2704; J2780; J3010; P9016

== ENCOUNTER 2018-10-27 13:37 | Inpatient (IN) | payer OTHER | END 2018-10-31 13:25 | disposition home health service (06) | LOC: F3N 17:14 ==